=== PATIENT | male | born 1995 | race Two or more races ===

== ENCOUNTER → 2017-06-16 | Outpatient (REF) | payer BC ==
[2017-06-16 12:34] LABS: MEAN CORPUSCULAR HEMOGLOBIN 28.2 pg (27.0-33.0); MEAN CORPUSCULAR HGB CONC 31.7 g/dl (32.0-36.5); MEAN CORPUSCULAR VOLUME 88.8 fl (80.0-96.0); PLATELET COUNT, AUTOMATED 335 10^3/uL (150-450); RED CELL DISTRIBUTION WIDTH 13.6 % (11.5-14.5); WHITE BLOOD COUNT 7.3 10^3/uL (4.0-10.0)
[2017-06-16 13:03] LABS: ALBUMIN 4.2 GM/DL (3.2-5.2); ALBUMIN/GLOBULIN RATIO 1.31 (1.00-1.93); ALKALINE PHOSPHATASE 45 U/L (45-117); ALT/SGPT 24 U/L (12-78); ANION GAP 6 MEQ/L (8-16); AST/SGOT 11 U/L (7-37); BILIRUBIN,TOTAL 0.4 MG/DL (0.2-1.0); BLOOD UREA NITROGEN 23 MG/DL (7-18); CALCIUM LEVEL 9.5 MG/DL (8.5-10.1); CARBON DIOXIDE LEVEL 29 MEQ/L (21-32); CHLORIDE LEVEL 105 MEQ/L (98-107); CHOLESTEROL LEVEL 241 MG/DL (<200); CREATININE FOR GFR 0.95 MG/DL (0.70-1.30); GLOMERULAR FILTRATION RATE > 60.0 (>60); GLUCOSE, FASTING 88 MG/DL (70-105); SODIUM LEVEL 140 MEQ/L (136-145); TOTAL PROTEIN 7.4 GM/DL (6.4-8.2); TRIGLYCERIDES LEVEL 103 MG/DL (<150)
[2017-06-16 13:08] LABS: POTASSIUM SERUM 5.2 MEQ/L (3.5-5.1)
== END ==
LOC: M SFHCLERA 08:28
PROVIDERS: ATTEND Family Medicine
DX: Z11.3 Encounter for screening for infections with a predominantly sexual mode of transmission (principal); Z79.899 Other long term (current) drug therapy; F31.12 Bipolar disorder, current episode manic without psychotic features, moderate; Z90.5 Acquired absence of kidney

== ENCOUNTER → 2017-08-19 | Outpatient (REF) | payer BC ==
[2017-08-19 12:21] LABS: AMPHETAMINES URINE REFLEX NEGATIVE (NEGATIVE); BARBITURATES URINE REFLEX NEGATIVE (NEGATIVE); BENZODIAZEPINES URINE REFLEX NEGATIVE (NEGATIVE); COCAINE METABOLITE URINE REFLE NEGATIVE (NEGATIVE); METHADONE URINE REFLEX NEGATIVE (NEGATIVE); OPIATES URINE REFLEX NEGATIVE (NEGATIVE); PHENCYCLIDINE URINE REFLEX NEGATIVE (NEGATIVE)
[2017-08-19 12:22] LABS: CANNABINOIDS URINE REFLEX POSITIVE (NEGATIVE)
[2017-08-21 14:16] LABS: Cannabinoid Positive (.); GC Carboxy THC >300 ng/mL (Cutoff=10)
== END ==
LOC: M SFHCLERA 09:54
DX: F41.9 Anxiety disorder, unspecified (principal)
CPT/HCPCS: G0480

== ENCOUNTER → 2017-09-17 | Outpatient (REF) | payer BC ==
[2017-09-17 20:46] LABS: AMPHETAMINES URINE REFLEX NEGATIVE (NEGATIVE); BARBITURATES URINE REFLEX NEGATIVE (NEGATIVE); BENZODIAZEPINES URINE REFLEX NEGATIVE (NEGATIVE); COCAINE METABOLITE URINE REFLE NEGATIVE (NEGATIVE); METHADONE URINE REFLEX NEGATIVE (NEGATIVE); OPIATES URINE REFLEX NEGATIVE (NEGATIVE); PHENCYCLIDINE URINE REFLEX NEGATIVE (NEGATIVE)
[2017-09-17 20:48] LABS: CANNABINOIDS URINE REFLEX PENDING CONFIRMATION (NEGATIVE)
== END ==
LOC: M SFHCLERA 17:22
DX: F31.12 Bipolar disorder, current episode manic without psychotic features, moderate (principal)
CPT/HCPCS: G0480

== ENCOUNTER → 2017-09-20 | Outpatient (REF) | payer BC | LOC: M SFHCLERA 14:11 | DX: R68.89 Other general symptoms and signs (principal); J11.1 Influenza due to unidentified influenza virus with other respiratory manifestations ==

== ENCOUNTER 2017-11-17 10:59 | Outpatient (REF) | payer BC ==
[2017-11-23 10:28] LABS: AMPHETAMINE SCREEN, URINE Negative ng/mL (Cutoff=1000); BARBITURATES SCREEN, URINE Negative ng/mL (Cutoff=200); BENZODIAZEPINES, URINE SCREEN Negative ng/mL (Cutoff=200); CANNABINOID SCREEN, URINE See Final Results ng/mL (Cutoff=20); CANNABINOID, URINE Positive (Cutoff=20); CARBOXY THC (GC/MS) 282 ng/mL (Cutoff=10); COCAINE SCREEN, URINE Negative ng/mL (Cutoff=300); CREATININE, URINE 26.3 mg/dL (20.0-300.0); FENTANYL URINE SCREEN Negative pg/mL (Cutoff=2000); METHADONE, URINE SCREEN Negative ng/mL (Cutoff=300); OPIATE SCREEN, URINE Negative ng/mL (Cutoff=300); OXYCODONE, SCREEN, URINE Negative ng/mL (Cutoff=100); PCP SCREEN, URINE Negative ng/mL (Cutoff=25); SPECIFIC GRAVITY, URINE 1.006 (.); pH, URINE 7.6 (4.5-8.9)
== END 2017-11-18 ==
LOC: M LAB REF 10:59
DX: F41.8 Other specified anxiety disorders (principal)
CPT/HCPCS: 80307

== ENCOUNTER → 2018-01-26 | Outpatient (REF) | payer BC ==
[2018-01-26 19:31] LABS: BASO # 0.1 10^3/uL (0.0-0.2); BASO % 0.9 % (0.0-1.0); EOS # 0.6 10^3/uL (0.0-0.50); EOS % 10.7 % (0.0-3.0); HEMATOCRIT 42.8 % (42.0-52.0); LYMPH # 1.9 10^3/uL (1.5-6.5); LYMPH % 33.8 % (24.0-44.0); MEAN CORPUSCULAR HEMOGLOBIN 27.6 pg (27.0-33.0); MEAN CORPUSCULAR HGB CONC 32.7 g/dl (32.0-36.5); MEAN CORPUSCULAR VOLUME 84.4 fl (80.0-96.0); MONO # 0.6 10^3/uL (0.0-0.8); MONO % 11.1 % (0.0-5.0); NEUTROPHILS # 2.4 10^3/uL (1.8-7.7); NEUTROPHILS % 43.5 % (36.0-66.0); PLATELET COUNT, AUTOMATED 281 10^3/uL (150-450); RED BLOOD COUNT 5.07 10^6/uL (4.30-6.10); RED CELL DISTRIBUTION WIDTH 13.8 % (11.5-14.5); WHITE BLOOD COUNT 5.5 10^3/uL (4.0-10.0)
[2018-01-26 19:53] LABS: ALBUMIN 4.2 GM/DL (3.2-5.2); ALBUMIN/GLOBULIN RATIO 1.14 (1.00-1.93); ALKALINE PHOSPHATASE 59 U/L (45-117); ALT/SGPT 36 U/L (12-78); ANION GAP 7 MEQ/L (8-16); AST/SGOT 23 U/L (7-37); BILIRUBIN,TOTAL 0.3 MG/DL (0.2-1.0); BLOOD UREA NITROGEN 18 MG/DL (7-18); CALCIUM LEVEL 9.1 MG/DL (8.5-10.1); CARBON DIOXIDE LEVEL 29 MEQ/L (21-32); CHLORIDE LEVEL 103 MEQ/L (98-107); CREATININE FOR GFR 0.88 MG/DL (0.70-1.30); GLOMERULAR FILTRATION RATE > 60.0 (>60); GLUCOSE, FASTING 92 MG/DL (70-100); POTASSIUM SERUM 4.2 MEQ/L (3.5-5.1); SODIUM LEVEL 139 MEQ/L (136-145); TOTAL PROTEIN 7.9 GM/DL (6.4-8.2)
[2018-01-26 19:54] LABS: TOTAL 25(OH) VITAMIN D 18.1 NG/ML (30.0-100.0)
[2018-02-03 11:35] LABS: SUMMARY SEE SEPARATE REPORT
== END ==
LOC: M LAB REF 11:45
DX: F41.8 Other specified anxiety disorders (principal)
CPT/HCPCS: 84443

== ENCOUNTER 2019-06-21 13:12 | Emergency (ER) | payer BC ==
[~2019-06-21] VITALS: Ht 182.9 cm; Wt 81.8 kg
[2019-06-21 13:12] VITALS: BP 135/73
== END 2019-06-21 18:25 | disposition left against medical advice (07) ==
LOC: M ED 13:12
DX: Z53.21 Procedure and treatment not carried out due to patient leaving prior to being seen by health care provider (principal)

== ENCOUNTER → 2022-10-15 | Outpatient (REF) | LOC: M LAB 09:43 ==